=== PATIENT | male | born 1965 | race Caucasian/White ===

== ENCOUNTER 2017-10-06 17:34 | Emergency (ER) | payer OTHER ==
[2017-10-06 18:02] LABS: BEDSIDE GLUCOSE 333 MG/DL (70-105)
[2017-10-06] MEDS: NS 1,000 ML IV (18:15)
[2017-10-06] MEDS: LORazepam 2 MG/ML VIAL (J2060) IV (18:39)
[2017-10-06] MEDS: ONDANSETRON 4MG/2ML VIAL (J2405) IV (18:40)
[2017-10-06] MEDS: MORPHINE 4 MG/ML 1ML VIAL (J2270) IV ×2 (18:40→19:50)
[2017-10-06 18:47] LABS: BASO % 0.5 % (0.0-1.0); EOS # 0.1 10^3/uL (0.0-0.50); EOS % 1.9 % (0.0-3.0); HEMATOCRIT 33.8 % (42.0-52.0); HEMOGLOBIN 11.7 g/dl (14.0-18.0); IMMATURE GRANULOCYTE % 0.3 % (0-3.0); LYMPH # 1.3 10^3/uL (1.5-4.5); LYMPH % 19.8 % (24.0-44.0); MEAN CORPUSCULAR HEMOGLOBIN 25.8 pg (27.0-33.0); MEAN CORPUSCULAR HGB CONC 34.6 g/dl (32.0-36.5); MEAN CORPUSCULAR VOLUME 74.6 fl (80.0-96.0); MONO # 0.4 10^3/uL (0.0-0.8); MONO % 6.8 % (0.0-5.0); NEUTROPHILS # 4.5 10^3/uL (1.8-7.7); NEUTROPHILS % 70.7 % (36.0-66.0); PLATELET COUNT, AUTOMATED 199 10^3/uL (150-450); RED BLOOD COUNT 4.53 10^6/uL (4.30-6.10); RED CELL DISTRIBUTION WIDTH 12.7 % (11.5-14.5); WHITE BLOOD COUNT 6.3 10^3/uL (4.0-10.0)
[2017-10-06 19:01] LABS: ALBUMIN 4.2 GM/DL (3.2-5.2); ALBUMIN/GLOBULIN RATIO 1.27 (1.00-1.93); ALKALINE PHOSPHATASE 70 U/L (45-117); ALT/SGPT 25 U/L (12-78); ANION GAP 9 MEQ/L (8-16); AST/SGOT 18 U/L (7-37); BILIRUBIN,DIRECT < 0.1 MG/DL (0.0-0.2); BILIRUBIN,TOTAL 0.3 MG/DL (0.2-1.0); BLOOD UREA NITROGEN 31 MG/DL (7-18); CALCIUM LEVEL 8.4 MG/DL (8.5-10.1); CARBON DIOXIDE LEVEL 24 MEQ/L (21-32); CHLORIDE LEVEL 103 MEQ/L (98-107); CREATININE FOR GFR 1.58 MG/DL (0.70-1.30); GLOMERULAR FILTRATION RATE 48.9 (>56); GLUCOSE, FASTING 326 MG/DL (70-100); POTASSIUM SERUM 4.3 MEQ/L (3.5-5.1); SODIUM LEVEL 136 MEQ/L (136-145); TOTAL PROTEIN 7.5 GM/DL (6.4-8.2)
[2017-10-06 19:02] LABS: VENOUS BASE EXCESS -1.6 (-2.0-2.0); VENOUS HCO3 22.2 MEQ/L (23.0-27.0); VENOUS O2 SATURATION 99.2 % (60.0-80.0); VENOUS PARTIAL PRESSURE CO2 34.7 mmHg (38.0-50.0); VENOUS PARTIAL PRESSURE O2 158.1 mmHg (30.0-50.0); VENOUS PH 7.424 UNITS (7.330-7.430); VENOUS STANDARD HCO3 23.2 MEQ/L; VENOUS TOTAL CO2 23.3 MEQ/L (24.0-28.0)
[2017-10-06 19:04] LABS: ESTIMATED AVERAGE GLUCOSE 240 MG/DL (60-110)
[2017-10-06] MEDS: NS 500 ML IV (19:30)
[2017-10-06 19:48] LABS: CK-MB VALUE MASS 3.1 NG/ML (0.0-3.6); CPK CREATINE PHOSPHOKINASE 255 U/L (39-308); LIPASE 170 U/L (73-393); MB/CK RELATIVE INDEX 1.21 (< OR =4); TROPONIN I < 0.02 NG/ML (< 0.10)
[2017-10-06] MEDS: HumuLIN R (REGULAR) INSULIN (NovoLIN R) **100U/ML** PER UNIT IV (19:51)
[2017-10-06 20:54] LABS: BEDSIDE GLUCOSE 238 MG/DL (70-105)
== END 2017-10-06 21:29 | disposition home or self-care (01) ==
LOC: M ED 17:34
DX: E11.65 Type 2 diabetes mellitus with hyperglycemia (principal); N39.0 Urinary tract infection, site not specified; J44.9 Chronic obstructive pulmonary disease, unspecified; E11.40 Type 2 diabetes mellitus with diabetic neuropathy, unspecified; E78.5 Hyperlipidemia, unspecified; G47.00 Insomnia, unspecified; F41.9 Anxiety disorder, unspecified; F32.9 Major depressive disorder, single episode, unspecified; I25.10 Atherosclerotic heart disease of native coronary artery without angina pectoris; I11.9 Hypertensive heart disease without heart failure; G47.33 Obstructive sleep apnea (adult) (pediatric); K86.1 Other chronic pancreatitis; Z88.8 Allergy status to other drugs, medicaments and biological substances; Z79.899 Other long term (current) drug therapy; Z79.02 Long term (current) use of antithrombotics/antiplatelets
CPT/HCPCS: J2270

== ENCOUNTER 2017-12-12 18:04 | Emergency (ER) | payer OTHER ==
[2017-12-12] MEDS: HYDROmorphone HCL 1 MG/ML SYRINGE (J1170) IV ×2 (20:23→20:46)
[2017-12-12 20:31] LABS: ALBUMIN 4.4 GM/DL (3.2-5.2); ALBUMIN/GLOBULIN RATIO 1.07 (1.00-1.93); ALKALINE PHOSPHATASE 86 U/L (45-117); ALT/SGPT 30 U/L (12-78); ANION GAP 8 MEQ/L (8-16); AST/SGOT 24 U/L (7-37); BILIRUBIN,TOTAL 0.3 MG/DL (0.2-1.0); BLOOD UREA NITROGEN 20 MG/DL (7-18); CALCIUM LEVEL 8.7 MG/DL (8.5-10.1); CARBON DIOXIDE LEVEL 27 MEQ/L (21-32); CHLORIDE LEVEL 103 MEQ/L (98-107); CPK CREATINE PHOSPHOKINASE 405 U/L (39-308); CREATININE FOR GFR 1.57 MG/DL (0.70-1.30); FREE THYROXINE INDEX 3.4 % (1.4-3.8); GLOMERULAR FILTRATION RATE 49.3 (>56); GLUCOSE, FASTING 184 MG/DL (70-100); POTASSIUM SERUM 4.1 MEQ/L (3.5-5.1); SODIUM LEVEL 138 MEQ/L (136-145); T UPTAKE 33 % (33-40); THYROXINE (T4) 10.4 UG/DL (4.5-12.0); TOTAL PROTEIN 8.5 GM/DL (6.4-8.2); TROPONIN I < 0.02 NG/ML (< 0.10)
[2017-12-12 20:33] LABS: BASO % 0.4 % (0.0-1.0); EOS # 0.1 10^3/uL (0.0-0.50); EOS % 0.8 % (0.0-3.0); HEMATOCRIT 41.1 % (42.0-52.0); HEMOGLOBIN 13.6 g/dl (13.5-17.5); IMMATURE GRANULOCYTE % 0.3 % (0-3.0); LYMPH # 1.2 10^3/uL (1.5-4.5); LYMPH % 12.6 % (24.0-44.0); MEAN CORPUSCULAR HGB CONC 33.1 g/dl (32.0-36.5); MEAN CORPUSCULAR VOLUME 75.7 fl (80.0-96.0); MONO # 0.5 10^3/uL (0.0-0.8); MONO % 5.1 % (0.0-5.0); NEUTROPHILS # 7.9 10^3/uL (1.8-7.7); NEUTROPHILS % 80.8 % (36.0-66.0); PLATELET COUNT, AUTOMATED 198 10^3/uL (150-450); RED BLOOD COUNT 5.43 10^6/uL (4.30-6.10); RED CELL DISTRIBUTION WIDTH 13.7 % (11.5-14.5); WHITE BLOOD COUNT 9.8 10^3/uL (4.0-10.0)
[2017-12-12 20:37] LABS: CK-MB VALUE MASS 4.7 NG/ML (<3.6); MB/CK RELATIVE INDEX 1.16 (< OR =4)
[2017-12-12] MEDS: hydrALAZINE INJ 20 MG/ML VIAL IV (20:46)
== END 2017-12-12 21:31 | disposition home or self-care (01) ==
LOC: M ED 18:04
DX: M54.9 Dorsalgia, unspecified (principal); I25.10 Atherosclerotic heart disease of native coronary artery without angina pectoris; Z95.5 Presence of coronary angioplasty implant and graft; E10.9 Type 1 diabetes mellitus without complications; Z79.4 Long term (current) use of insulin; Z79.899 Other long term (current) drug therapy; Z88.8 Allergy status to other drugs, medicaments and biological substances
CPT/HCPCS: J1170

== ENCOUNTER → 2018-01-20 | Outpatient (REF) | payer OTHER ==
[2018-01-21 10:21] LABS: BASO % 0.6 % (0.0-1.0); EOS # 0.1 10^3/uL (0.0-0.50); EOS % 0.9 % (0.0-3.0); HEMATOCRIT 38.3 % (42.0-52.0); HEMOGLOBIN 12.3 g/dl (13.5-17.5); IMMATURE GRANULOCYTE % 0.3 % (0-3.0); LYMPH % 14.8 % (24.0-44.0); MEAN CORPUSCULAR HEMOGLOBIN 26.4 pg (27.0-33.0); MEAN CORPUSCULAR HGB CONC 32.1 g/dl (32.0-36.5); MEAN CORPUSCULAR VOLUME 82.2 fl (80.0-96.0); MONO # 0.4 10^3/uL (0.0-0.8); MONO % 5.5 % (0.0-5.0); NEUTROPHILS # 5.3 10^3/uL (1.8-7.7); NEUTROPHILS % 77.9 % (36.0-66.0); PLATELET COUNT, AUTOMATED 190 10^3/uL (150-450); RED BLOOD COUNT 4.66 10^6/uL (4.30-6.10); RED CELL DISTRIBUTION WIDTH 14.9 % (11.5-14.5); WHITE BLOOD COUNT 6.7 10^3/uL (4.0-10.0)
[2018-01-21 10:50] LABS: ALBUMIN 4.1 GM/DL (3.2-5.2); ALBUMIN/GLOBULIN RATIO 1.28 (1.00-1.93); ALKALINE PHOSPHATASE 72 U/L (45-117); ALT/SGPT 36 U/L (12-78); ANION GAP 7 MEQ/L (8-16); AST/SGOT 35 U/L (7-37); BILIRUBIN,TOTAL 0.6 MG/DL (0.2-1.0); BLOOD UREA NITROGEN 37 MG/DL (7-18); CALCIUM LEVEL 7.8 MG/DL (8.5-10.1); CARBON DIOXIDE LEVEL 25 MEQ/L (21-32); CHLORIDE LEVEL 100 MEQ/L (98-107); CPK CREATINE PHOSPHOKINASE 857 U/L (39-308); CREATININE FOR GFR 2.57 MG/DL (0.70-1.30); GLOMERULAR FILTRATION RATE 27.9 (>56); RHEUMATOID FACTOR QUANT < 10.0 IU/ML (<15.0); SODIUM LEVEL 132 MEQ/L (136-145); TOTAL PROTEIN 7.3 GM/DL (6.4-8.2)
[2018-01-21 10:57] LABS: ERYTHROCYTE SEDIMENTATION RATE 27 mm/hr (0-20)
[2018-01-21 11:15] LABS: GLUCOSE, FASTING 543 MG/DL (70-100); POTASSIUM SERUM 5.8 MEQ/L (3.5-5.1)
[2018-01-21 12:08] LABS: ESTIMATED AVERAGE GLUCOSE 229 MG/DL (60-110); HEMOGLOBIN A1c 9.6 %
[2018-01-21 14:53] LABS: VITAMIN B12 LEVEL 423 PG/ML
[2018-01-21 14:54] LABS: FOLATE 9.2 NG/ML
[2018-01-26 14:03] LABS: ALBUMIN % 62.6 % (55.8-66.1); ALPHA-1-GLOBULIN % 4.5 % (2.9-4.9)
[2018-01-26 14:04] LABS: ALBUMIN 4.57 GM/DL (3.29-5.55); ALPHA-1-GLOBULINS 0.33 GM/DL (0.17-0.41); ALPHA-2-GLOBULINS 0.66 GM/DL (0.42-0.99); BETA-1-GLOBULINS 0.56 GM/DL (0.28-0.60); BETA-1-GLOBULINS % 7.7 % (4.7-7.2); BETA-2-GLOBULINS 0.41 GM/DL (0.19-0.55); BETA-2-GLOBULINS % 5.6 % (3.2-6.5); GAMMA GLOBULIN % 10.6 % (11.1-18.8); GAMMA GLOBULINS 0.77 GM/DL (0.65-1.58)
[2018-01-30 10:25] LABS: VITAMIN E(ALPHA TOCOPHEROL) 10.1 mg/L
[2018-01-30 10:27] LABS: VITAMIN E(GAMMA TOCOPHEROL) 3.7 mg/L
[2018-01-30 10:28] LABS: ACETYLCHOLINE RCPTOR BINDING A < 0.03
[2018-01-30 10:29] LABS: ALDOLASE 9.2 U/L
[2018-01-30 10:30] LABS: VITAMIN B1 LEVEL WHOLE BLOOD 86.8 nmol/L
[2018-01-30 10:31] LABS: VITAMIN B6,PYRIDOXAL PHOSPHATE 10.2 ug/L
[2018-01-30 10:32] LABS: ANTINUCLEAR ANTIBODIES DIRECT Negative
[2018-01-30 10:33] LABS: LEAD BLOOD ADULT 2 ug/dL; STRIATIONAL ANTIBODIES Negative
[2018-01-30 10:34] LABS: CERULOPLASMIN 26.6 mg/dl
[2018-01-30 10:35] LABS: COPPER PLASMA 116 ug/dL
[2018-01-30 10:36] LABS: MERCURY LEVEL None Detected
[2018-01-30 10:37] LABS: ANTI-MuSK ABY INTERP <1.0 U/mL
== END ==
LOC: M LABNEURO 08:52
DX: G70.01 Myasthenia gravis with (acute) exacerbation (principal); G62.89 Other specified polyneuropathies

== ENCOUNTER → 2019-01-12 | Outpatient (CLI) | payer MEDICARE ==
[~2019-01-12] MED LIST: ATOR40TA75; BACL1TAB9; BASA100I; BENZ0.5T; BUSP15TA47; BUSP30TA; CARV25TA; CLOP75TA2; COLC1TAB13; DOXY100T; GABA800T4; GLUC1KIT; HYDR-3713 PO; INSUHUMDS; INSULANT SC; LAMI1TAB7 PO; LEVO25TA5; LISI40TA; MIRT30TA3; OMEP40CA2; PYRI1TAB3; PYRI60TA2; VITA50005
--- NOTE | 2019-01-30 00:47 | ECWPNPC ---
PATIENT NAME: JENNIFER BRODY : 1965 GENDER: MALE VISIT DATE: 01/12/2019 DISCHARGE DATE: 01/12/191711 VISIT LOCKED DATE TIME: PHYSICIAN: STEPH BANUELOS MD RESOURCE: STEPH BANUELOS MD REASON FOR APPOINTMENT 1. VASHTI. BACK PAIN HISTORY OF PRESENT ILLNESS PAIN SCREENING: PATIENT HAS A COMPLAINT OF ACUTE OR CHRONIC PAIN :YES 53 YEAR OLD MALE PATIENT WITH A HISTORY OF CHRONIC LOW BACK PAIN. THE PATIENT DESCRIBES THE PAIN SHARP, SHOOTING, AND CONTINUOUS WITH A PAIN SCORE OF 6-10/10 DEPENDING ON PHYSICAL ACTIVITY. THE PATIENT SAYS THE PAIN STARTS IN HIS LOW BACK AREA AND RADIATES DOWN HIS LEFT LEG WITH SOME NUMBNESS. THE PATIENT SAYS THAT HE HAS HAD THIS PAIN FOR ABOUT 3 YEARS AND SAYS IT IS FROM BEING ACTIVE. THE PATIENT SAYS HE HAS DIFFICULTY DOING DAILY ACTIVITIES SUCH COOKING AND CLEANING DUE TO THIS PAIN. THE PATIENT IS CURRENTLY USING GABAPENTIN, BACLOFEN, AND CYMBALTA TO AID IN PAIN RELIEF. THE PATIENT REPORTS THAT HE IS LEGALLY BLIND AND CAN ONLY SEE SHADOWS. PATIENT DENIES UNEXPLAINABLE WEIGHT LOSS, FEVER, CHILLS, NEW CHANGES ON HIS URINARY OR BOWEL CONTROL. FALL RISK SCREENING: SCREENING :NO FALLS REPORTED IN THE LAST YEAR CURRENT MEDICATIONS TAKING CETIRIZINE HCL 10 MG TABLET 1 TABLET ORALLY ONCE A DAY TAKING LAMOTRIGINE 100 MG TABLET 1 TABLET ORALLY ONCE A DAY TAKING PANTOPRAZOLE SODIUM 40 MG TABLET DELAYED RELEASE 1 TABLET ORALLY ONCE A DAY TAKING DULOXETINE HCL 30 MG CAPSULE DELAYED RELEASE PARTICLES 1 CAPSULE ORALLY ONCE A DAY TAKING CLOPIDOGREL BISULFATE 75 MG TABLET 1 TABLET ORALLY ONCE A DAY TAKING VITAMIN D (ERGOCALCIFEROL) 29081 UNIT CAPSULE 1 CAPSULE ORALLY WEEKLY TAKING BACLOFEN 20 MG TABLET 1 TABLET WITH FOOD OR MILK ORALLY EVERY 8 HRS TAKING FISH OIL 1000 MG CAPSULE 1 CAPSULE ORALLY ONCE A DAY TAKING POTASSIUM 99 MG TABLET 1 TABLET ORALLY ONCE A DAY TAKING AMLODIPINE BESYLATE 10 MG TABLET 1 TABLET ORALLY ONCE A DAY TAKING DULCOLAX STOOL SOFTENER 100 MG CAPSULE 1 CAPSULE NEEDED ORALLY ONCE A DAY TAKING HYDROXYZINE HCL 50 MG TABLET 1 TABLET NEEDED ORALLY EVERY 6 HRS TAKING FENOFIBRATE 160 MG TABLET 1 TABLET WITH FOOD ORALLY ONCE A DAY TAKING LISINOPRIL-HYDROCHLOROTHIAZIDE 20-12.5 MG TABLET 1 TABLET ORALLY ONCE A DAY TAKING GLUCAGON EMERGENCY 1 MG KIT DIRECTED INJECTION NEEDED TAKING LEVOTHYROXINE SODIUM 25 MCG TABLET 1 TABLET ON AN EMPTY STOMACH IN THE MORNING ORALLY ONCE A DAY TAKING MIRTAZAPINE 30 MG TABLET 1 TABLET AT BEDTIME ORALLY ONCE A DAY TAKING PYRIDOSTIGMINE BROMIDE 60 MG TABLET 1 TABLET ORALLY THREE TIMES DAILY TAKING PYRIDOSTIGMINE BROMIDE ER 180 MG TABLET EXTENDED RELEASE 1 TABLET ORALLY BEFORE BEDTIME TAKING BASAGLAR 100 UNIT/ML - SOLUTION SOLUTION 52 UNITS IN A.M., 56 UNITS AT BEDTIME SUBCUTANEOUS TAKING ADMELOG 100 UNIT/ML SOLUTION SLIDING SCALE SUBCUTANEOUS FOUR TIMES DAILY TAKING GABAPENTIN 800 MG TABLET 1 TAB ORALLY FOUR TIMES DAILY NEEDED TAKING REMERON 15 MG TABLET 1 TABLET AT BEDTIME ORALLY ONCE A DAY TAKING ALBUTEROL SULFATE (2.5 MG/3ML) 0.083% NEBULIZATION SOLUTION 3 ML NEEDED INHALATION EVERY 8 HRS TAKING ATORVASTATIN CALCIUM 40 MG TABLET 1 TABLET ORALLY ONCE A DAY TAKING ATROVENT HFA 17 MCG/ACT AEROSOL SOLUTION 2 PUFFS INHALATION FOUR TIMES A DAY TAKING BENZTROPINE MESYLATE 0.5 MG TABLET 1 TABLET AT BEDTIME ORALLY ONCE A DAY TAKING CARVEDILOL 25 MG TABLET DIRECTED ORALLY TAKING CYMBALTA 30 MG CAPSULE DELAYED RELEASE PARTICLES 1 CAPSULE ORALLY ONCE A DAY TAKING GEMFIBROZIL 600 MG TABLET 1 TABLET ORALLY BEFORE BEDTIME TAKING NITROGLYCERIN 0.4 MG TABLET SUBLINGUAL DIRECTED SUBLINGUAL TAKING SENNA 8.6 MG TABLET 2 TABLETS AT BEDTIME NEEDED ORALLY ONCE A DAY TAKING VENTOLIN HFA 108 (90 BASE) MCG/ACT AEROSOL SOLUTION 2 PUFFS INHALATION EVERY 4 HOURS NEEDED MEDICATION LIST REVIEWED AND RECONCILED WITH THE PATIENT PAST MEDICAL HISTORY CORONARY ARTERY DISEASE CHRONIC KIDNEY DISEASE, STAGE 3 HYPOTHYROIDISM DIABETES WITH DIABETIC NEUROPATHY MITOCHOHDRIAL MYOPATHY MYASTHENIA GRAVIS BACK PAIN WITH LEFT LEG WEAKNESS GERD VITAMIN D DEFICIENCY TIA'S HYPERTENSION LEGALLY BLIND PNUEMONIA PANCREATITIS MASSES ON RIGHT KIDNEY ALLERGIES HEPARIN SODIUM (PORCINE): SEVERE SWELLING, HIVES, RASH - ALLERGY CONTRAST DYE: SEVERE HIGH BLOOD PRESSURE - ALLERGY SURGICAL HISTORY OPEN HEART SURGERY CARDIAC STENTS AND INSERTION OF PACEMAKER REMOVAL OF RIGHT KIDNEY APPENDECTOMY CHOLECYSTECTOMY RHINOPLASTY BLETHROPLASTY PLATES AND SCREWS RIGHT ANKLE INJECTIONS IN BACK FAMILY HISTORY FATHER: 39 YRS, COLON CANCER, DIAGNOSED WITH DIABETES, CANCER MOTHER: 72 YRS, CANCER EVERYWHERE, CANCER, DIABETES DAUGHTER(S): ALIVE, LEUKEMIA, CANCER 3 SON(S) , 2 DAUGHTER(S) . SOCIAL HISTORY GENERAL: TOBACCO USE ARE YOU A:CURRENT SMOKER MARIJUANA EDUCATION LEVEL OF EDUCATION:FINISHED HIGH SCHOOL DIET: CARBOHYDRATE CONTROLLED,, NO ADDED SALT. LANGUAGE LANGUAGES SPOKEN:ITALIAN DOMESTIC VIOLENCE DO YOU FEEL SAFE IN YOUR ENVIRONMENT?YES RECREATIONAL DRUG USE DRUG USE?YES MARIJUANA HOW OFTEN AND HOW MUCH? 3 JOINTS/DAY EXERCISE: NONE. LEARNING BARRIERS / SPECIAL NEEDS BARRIERS TO LEARNING?YES COMMENTS LEGALLY BLIND HEARING IMPAIRED?NO VISION IMPAIRED?YES CAN ONLY SEE SHADOWS OUT OF ONE EYE COGNITIVELY IMPAIRED?YES HAS TROUBLE REMEMBERING READINESS TO LEARN?YES LEARNING PREFERENCES?YES :DEMONSTRATION/VERBAL INSTRUCTION LEARNING CAPABILITIES PRESENT?YES EMOTIONAL BARRIERS?NO SPECIAL DEVICES?YES :WALKER, WHEELCHAIR, OTHER CANE FOR THE BLIND MEDICAL DIRECTOR/HEAD TEAM PHYSICIAN NEEDED?NO PAIN CLINIC PFS, CLERGY, PUBLIC HEALTH REFERRALS HAS THE PATIENT BEEN EDUCATED REGARDING HIS/HER PLAN OF CARE?YES HAS THE PATIENT BEEN EDUCATED REGARDING PAIN, THE RISK FOR PAIN, THE IMPORTANCE OF EFFECTIVE PAIN MANAGEMENT, AND THE PAIN ASSESSMENT PROCESS?YES LATEX QUESTIONNAIRE LATEX ALLERGY : HAVE YOU EVER DEVELOPED ANY TYPE OF REACTION AFTER HANDLING LATEX PRODUCTS SUCH RUBBER GLOVES, CONDOMS, DIAPHRAGMS, BALLOONS, SOCKS, OR UNDERWEAR?NO LATEX ALLERGY : HAVE YOU EVER DEVELOPED ANY TYPE OF REACTION DURING OR AFTER DENTAL APPOINTMENT, VAGINAL/RECTAL EXAMINATION, SURGICAL PROCEDURE, OR ANY OTHER EXPOSURE?NO LATEX RISK : HAVE YOU EVER HAD ANY DIFFICULTY BREATHING OR HIVES AFTER EATING OR HANDLING ANY FRUITS, OR VEGETABLES; SUCH KIWI, BANANAS, STONE FRUITS, OR CHESTNUTSNO LATEX RISK : DO YOU HAVE A PREVIOUS PERSONAL HISTORY OF MORE THAN NINE SURGERIES, SPINA BIFIDA, OR REPEATED CATHERTIZATIONS? YES - PLEASE INDICATE : > 9 SURGERIES LATEX RISK : ARE YOU FREQUENTLY EXPOSED TO LATEX PRODUCTS IN YOUR OCCUPATION?NO DATE ASKED : 01/12/2019 CAFFEINE CAFFEINE USE?YES HOW OFTEN AND HOW MUCH? 2 1/2 POTS COFFEE/DAY ADVANCE DIRECTIVE ADVANCE DIRECTIVE DISCUSSED WITH PATIENT:YES 01/12/19 PT STATES HE HAS HCP: MICHAEL SUN [phone] AND LIVING PT WILL BRING COPIES IN PENTECOSTALISM [id number] SCIENTOLOGIST MARITAL STATUS: .. ALCOHOL SCREENING DID YOU HAVE A DRINK CONTAINING ALCOHOL IN THE PAST YEAR?NO POINTS0 INTERPRETATIONNEGATIVE OCCUPATION: DISABLED. HOSPITALIZATION/MAJOR DIAGNOSTIC PROCEDURE SURGERIES PNUEMONIA 08/2018 FLARE UP OF MYASTENIA GRAVIS 06/2018 PANCREATITIS REVIEW OF SYSTEMS REVIEWED BY: PROVIDER: STEPH BANUELOS MD . CONSTITUTIONAL: ANY CHANGE IN YOUR MEDICAL CONDITION? MITOCHOHDRIAL MYOPATHY- DIAGNOSED 2 MONTHS AGO . CHILLS NO . FEVER NO . INFECTION: DO YOU HAVE NEW INFECTIONS? NO . DO YOU HAVE HISTORY OF MRSA? NO . MUSCULOSKELETAL: ANY NEW PATTERNS OF PAIN OR NUMBNESS? YES PAIN IS WORSE AND NOW HAS NUMBESS IN BOTH LEGS--FEELS ALWAYS TIRED . SYTEMIC LUPUS NO . GASTROENTEROLOGY: ANY NEW CHANGE IN BOWEL CONTROL? NO . BARRETTS ESOPHAGUS NO . CIRRHOSIS NO . HEPATITIS NO . LIVER FAILURE NO . ACID REFLUX YES . UNEXPLAINED WEIGHT LOSS NO . GENITOURINARY: ANY NEW CHANGE IN BLADDER CONTROL? NO . IS THERE A CHANCE YOU COULD BE ? NO . HEMATOLOGY/LYMPH: DO YOU TAKE ANY BLOOD THINNERS? (FOR EXAMPLE- COUMADIN, PLAVIX, AGGRENOX, PLATEL, PRADAXA, OR XARELTO) YES PLAVIX . WHEN WAS YOUR LAST DOSE? DATE: TIME:01/12 0800 . LOW PLATELET COUNT NO . SICKLE CELL DISEASE NO . VON WILLIEBRANDS NO . FACTOR V LEIDEN NO . THALLASEMIA NO . ANEMIA NO . EASY BRUISING ON ANTICOAGULANTS, ON PLAVIX, YES . NEUROLOGY: HAVE YOU FALLEN IN THE PAST 12 MONTHS? YES, 4 TIMES, JUST LOOSES HIS BALANCE, ALSO HE JUST FALLS ASLEEP WHILE STANDIND UP. NO INJURY . ANY NEW EXTREMITY NUMBNESS OR WEAKNESS? YES, WEAKNESS IN LEGS STARTED A MONTH AGO AND HAS PROGRESSIVELY GOTTEN WORSE . HEAD INJURY NO . DEMENTIA NO BUT STATES HE FORGETS EASILY . CEREBRAL PALSY NO . MULTIPLE SCLEROSIS NO . DIZZINESS NO . HEADACHE NO . STROKES NO . VERTIGO NO . CARDIOLOGY: DO YOU HAVE A PACEMAKER OR DEFIBRILLATOR? YES, PACEMAKER . ANGINA NO . HEART ATTACK YES X 1 . HEART SURGERY YES, OPEN HEART,STENTS PLACED AND PACEMAKER . CONGESTIVE HEART FAILURE/FLUID OVERLOAD YES . CHEST PAIN NO . HIGH BLOOD PRESSURE ON MEDICATION(S) . IRREGULAR HEART BEAT NO . RESPIRATORY: HAVE YOU BEEN SICK IN THE PAST WEEK? NO . FEVER NO . FLU LIKE SYMPTOMS? NO . CPAP YES AND OXYGEN AT NIGHT . BYPAP NO . ASTHMA YES . EMPHYSEMA NO . CHRONIC LUNG DISEASES NO . SHORTNESS OF BREATH ON EXERTION YES . COUGH NO . SNORING YES . INTEGUMENTARY: DO YOU HAVE ANY RASHES OR OPEN SORES? NO . ALLERGIC/IMMUNO: ARE YOU ALLERGIC TO IV DYE? YES . ANY NEW ALLERGIES? NO . PSYCHIATRIC: DO YOU HAVE THOUGHTS OF HURTING YOURSELF OR SOMEONE ELSE? NO . ARE YOU ABUSED, NEGLECTED, OR IN AN UNSAFE ENVIRONMENT? NO . ENDOCRINOLOGY: ARE YOU DIABETIC? YES . THYROID DISORDER HYPOTHYROID . OTHER: DO YOU NEED ANY PRESCRIPTIONS? NO . IF YES, PLEASE LIST: ____ . ANY NEW PROBLEMS WITH YOUR MEDICATIONS? NO . WHEN DID YOU LAST EAT? ____ . WHEN DID YOU LAST DRINK? ____ . WHAT DID YOU LAST DRINK? ____ . NAME OF PERSON DRIVING YOU HOME? ____ . DO YOU HAVE ANY OTHER QUESTIONS OR CONCERNS YES, NEEDS SOMETHING FOR THE PAIN . VITAL SIGNS WT 200.0 LBS, HT 57 IN, BMI 43.27 INDEX, BP 163/78 MM HG, HR 89 /MIN, RR 18 /MIN, TEMP 98.0 F, OXYGEN SAT % 100%, SAFE IN ENV? (Y/N) Y, NA INITIALS AW 1509, REVIEWED BY: LINDEN. EXAMINATION GENERAL EXAMINATION: PATIENT IS ALERT O X 3 AND COOPERATIVE. LUNGS CLEAR, TO AUSCULTATION. HEART: NO MURMURS OR GALLOPS; FACIAL CRANIAL NERVES ARE GROSSLY NORMAL. RIGHT SIDE OF FACE IS MORE FLACID. NORMAL VISUAL CRANE. ANTALGIC GAIT. PATIENT IS LIMPING FROM HIS LEFT LEG. TENDERNESS IN THE LOW BACK AREA. PRESENCE OF TRIGGER POINTS AND BANDS OF TISSUE WITH RESTRICTION OF MOVEMENT OF THE BACK. LEFT ARM IS WEAKER AT EXTENSION AND FLEXION. HAND REDEYE GUNNER OVER THE LEFT SIDE IS REDUCED. LEFT LEG IS WEAKER AT EXTENSION AND FLEXION. STRAIGHT LEG RAISE OF THE LEFT LEG IS POSITIVE AT [address] OF THE LUMBAR SPINE DONE ON 12/12/2017 SHOWS DEGENERATIVE CHANGES. EMG OF THE LOWER EXTREMITIES DONE ON 11/23/2017 SHOWS PERIPHERAL NEUROPATHY. 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 BRODY'S PAIN MANAGEMENT CASE. DUE TO THE TRIGGER POINTS, BANDS OF TISSUE, AND RESTRICTION OF MOVEMENT, I WOULD LIKE TO MOVE FORWARD WITH A TRIGGER POINT INJECTION AT THIS TIME. WE DISCUSSED THE BENEFITS, RISKS, AND ALTERNATIVES OF THE INJECTION AND THE PATIENT WOULD LIKE TO PROCEED. THE PATIENT MAY CONSIDER A LUMBAR EPIDURAL IN THE FUTURE, BUT FIRST I WILL NEED A CLEARANCE FROM THE PATIENT'S PRIMARY CARE PHYSICIAN FOR HIM TO HOLD PLAVIX. I WILL ALSO INCREASE THE PATIENT'S CYMBALTA TO 30MG TWO TIMES PER DAY. THE PATIENT WILL FOLLOW UP A FEW WEEKS AFTER THE INJECTION. INSTRUCTIONS WERE GIVEN, QUESTIONS WERE ANSWERED, PATIENT REPORTS UNDERSTANDING AND AGREES WITH THE PLAN. I, JAQUELIN WYNNE, DOCUMENTED THE ABOVE INFORMATION ACTING A SCRIBE FOR DR. BANUELOS. I HAVE REVIEWED THE ABOVE DOCUMENT, WRITTEN BY JAQUELIN WYNNE SCRIBE AND I VERIFY THAT IT IS ACCURATE. DEAR DR. JARQUIN:THANK YOU FOR YOUR KIND REFERRAL OF MR. BRODY. IF YOU WANT TO DISCUSS HIS CASE WITH ME PLEASE CALL ME AT THE PAIN CENTER AT [phone]. SINCERELY,STEPH BANUELOS, [facility] . OTHERS REFILL CYMBALTA CAPSULE DELAYED RELEASE PARTICLES, 30 MG, 1 CAPSULE, ORALLY FOR PAIN, BID, 30 DAY(S), 60 CAPSULE, REFILLS 1 NOTES: TRIGGER POINT INJECTION MATERIAL WAS PRINTED,TRIGGER POINT INJECTION: YOUR EXPERIENCE MATERIAL WAS PRINTED. PROCEDURE CODES FA211 ESTABILISHED PATIENT [facility] FACILITY CHARGE G8427 CURRENT MEDS W/DOSAGES DOCUMENTED G8730 PAIN ASSESS POS TOOL F/U PLAN DOC DISPOSITION & COMMUNICATION FOLLOW UP 3 WEEKS ELECTRONICALLY SIGNED BY STEPH BANUELOS MD, MD ON 01/29/2019 AT 02:44 PM EDT DISCLAIMER : THIS IS A VISIT SUMMARY EXTRACTED FROM THE [employer] CHART. IT IS NOT A COPY OF THE [employer] PROGRESS NOTE. [place]OM[place]
== END ==
LOC: M PAIN 14:45
PROVIDERS: ATTEND Anesthesiology
DX: M79.18 Myalgia, other site (principal); M51.16 Intervertebral disc disorders with radiculopathy, lumbar region; M79.2 Neuralgia and neuritis, unspecified; E03.9 Hypothyroidism, unspecified; E11.40 Type 2 diabetes mellitus with diabetic neuropathy, unspecified; G70.00 Myasthenia gravis without (acute) exacerbation; K21.9 Gastro-esophageal reflux disease without esophagitis; E55.9 Vitamin D deficiency, unspecified; I10 Essential (primary) hypertension; Z95.0 Presence of cardiac pacemaker; Z95.5 Presence of coronary angioplasty implant and graft; Z88.8 Allergy status to other drugs, medicaments and biological substances; Z91.041 Radiographic dye allergy status; Z79.01 Long term (current) use of anticoagulants; E66.01 Morbid (severe) obesity due to excess calories; Z68.41 Body mass index [BMI] 40.0-44.9, adult; Z79.4 Long term (current) use of insulin; Z79.899 Other long term (current) drug therapy